=== PATIENT | male | born 1985 | race Caucasian/White ===

== ENCOUNTER 2020-03-28 17:19 | Emergency (ER) | payer MEDICAID ==
[~2020-03-28] VITALS: Ht 172.7 cm; Wt 185.0 kg
[2020-03-28] MEDS ORDERED: EMTR1TAB12 PO (17:46)
[2020-03-28] MEDS ORDERED: MAGNESIUM/ALUMINUM HYDROXIDE/SIMETHICONE 30ML UDC PO STA (17:59)
[2020-03-28] MEDS ORDERED: SODIUM CHLORIDE 0.9% 500 ML IV ONE (17:59)
[2020-03-28] MEDS ORDERED: KETOROLAC 30MG/ML VIAL IV STA (17:59)
[2020-03-28] MEDS ORDERED: ONDANSETRON HCL 4MG/2ML INJ IV STA (17:59)
[2020-03-28] MEDS ORDERED: VISCOUS LIDOCAINE 2% 15 ML UDC PO STA (17:59)
[2020-03-28 18:40] LABS: BASOPHILS % 0.2 % (0.0-2.0); EOSINOPHILS % 0.2 % (0.0-5.0); HEMATOCRIT. 46.5 % (42.0-52.0); HEMOGLOBIN. 16.1 g/dL (14.0-18.0); LYMPHOCYTES % 12.4 % (20.0-50.0); MEAN CORPUSCULAR HEMOGLOBIN 31.2 pg (28.0-32.0); MEAN PLATELET VOLUME 8.7 fl (7.4-10.4); MONOCYTES % 5.8 % (2.0-8.0); NEUTROPHILS % 81.4 % (40.0-76.0); PLATELET 277 x1000/uL (130-400); RED BLOOD CELL COUNT 5.17 mill/uL (4.7-6.1); RED CELL DISTRIBUTION WIDTH 13.8 % (11.6-14.6)
[2020-03-28 18:44] LABS: CHLORIDE 105 mEq/L (98-107)
[2020-03-28 18:48] LABS: PROTHROMBIN TIME 10.4 sec (9.6-11.0)
[2020-03-28] MEDS ORDERED: POTASSIUM CHLORIDE 20MEQ TABLET SR PO ONE (19:15)
[2020-03-28 19:16] LABS: CLARITY URINE CLEAR (CLEAR); COLOR URINE YELLOW (YELLOW); KETONES URINE NEGATIVE (NEGATIVE); LEUKOCYTE ESTERASE URINE NEGATIVE (NEGATIVE); NITRITE URINE NEGATIVE (NEGATIVE); OCCULT BLOOD URINE NEGATIVE (NEGATIVE); PH URINE 6.5 (4.5-8.0); PROTEIN URINE NEGATIVE (NEGATIVE); SPECIFIC GRAVITY URINE 1.004 (1.005-1.030); UROBILINOGEN URINE 0.2 E.U./dL (0.2-1.0)
[2020-03-28 20:30] VITALS: BP 135/72
== END 2020-03-28 20:45 | disposition home or self-care (01) ==
LOC: ER 17:19
DX: R10.13 Epigastric pain (principal); E66.01 Morbid (severe) obesity due to excess calories; Z68.44 Body mass index [BMI] 60.0-69.9, adult
CPT/HCPCS: 36415; 71045; 74177; 80053; 81003; 83690; 83880; 85025; 85610; 93005; 96361; 96374; 96375; 99285; J1885; J2405; J7030

== ENCOUNTER 2020-05-29 23:18 | Emergency (ER) | payer MEDICAID ==
[~2020-05-29] VITALS: Ht 172.7 cm; Wt 186.0 kg
[~2020-05-29 23:18] MED LIST: EMTR1TAB12 PO
[2020-05-30 00:11] LABS: BASOPHILS % 0.5 % (0.0-2.0); EOSINOPHILS % 2.1 % (0.0-5.0); HEMATOCRIT. 43.8 % (42.0-52.0); HEMOGLOBIN. 15.4 g/dL (14.0-18.0); LYMPHOCYTES % 37.9 % (20.0-50.0); MEAN CORPUSCULAR HEMOGLOBIN 31.5 pg (28.0-32.0); MEAN CORPUSCULAR VOLUME 89.6 fL (80.0-94.0); MEAN PLATELET VOLUME 8.6 fl (7.4-10.4); MONOCYTES % 9.5 % (2.0-8.0); PLATELET 249 x1000/uL (130-400); RED BLOOD CELL COUNT 4.89 mill/uL (4.7-6.1); RED CELL DISTRIBUTION WIDTH 13.2 % (11.6-14.6)
[2020-05-30 00:12] LABS: CHLORIDE 106 mEq/L (98-107)
[2020-05-30 01:42] VITALS: BP 139/78
== END 2020-05-30 03:23 | disposition home or self-care (01) ==
LOC: ER 23:18
DX: M94.0 Chondrocostal junction syndrome [Tietze] (principal)
CPT/HCPCS: 36415; 71045; 80048; 84484; 85025; 85379; 93005; 99285

== ENCOUNTER 2020-10-09 06:21 | Emergency (ER) | payer MEDICAID ==
[~2020-10-09] VITALS: Ht 172.7 cm; Wt 187.0 kg
[2020-10-09] MEDS ORDERED: SODIUM CHLORIDE 0.9% 1,000 ML IV ONE (07:00)
[2020-10-09 07:27] LABS: BASOPHILS % 0.5 % (0.0-2.0); EOSINOPHILS % 0.4 % (0.0-5.0); HEMATOCRIT. 44.9 % (42.0-52.0); HEMOGLOBIN. 15.5 g/dL (14.0-18.0); LYMPHOCYTES % 18.3 % (20.0-50.0); MEAN CORPUSCULAR HEMOGLOBIN 30.6 pg (28.0-32.0); MEAN PLATELET VOLUME 8.9 fl (7.4-10.4); MONOCYTES % 8.5 % (2.0-8.0); NEUTROPHILS % 72.3 % (40.0-76.0); PLATELET 270 x1000/uL (130-400); RED BLOOD CELL COUNT 5.04 mill/uL (4.7-6.1); RED CELL DISTRIBUTION WIDTH 13.2 % (11.6-14.6)
[2020-10-09 07:35] LABS: CHLORIDE 106 mEq/L (98-107)
[2020-10-09 07:41] LABS: ETHANOL BLOOD < 10 mg/dL
[2020-10-09 07:48] LABS: PROTHROMBIN TIME 10.4 sec (9.6-11.0)
[2020-10-09] MEDS ORDERED: SODIUM CHLORIDE 0.9% 1,000 ML IV SCH (09:15)
[2020-10-09 09:46] LABS: CLARITY URINE CLEAR (CLEAR); COLOR URINE YELLOW (YELLOW); KETONES URINE TRACE (NEGATIVE); LEUKOCYTE ESTERASE URINE NEGATIVE (NEGATIVE); NITRITE URINE NEGATIVE (NEGATIVE); OCCULT BLOOD URINE NEGATIVE (NEGATIVE); PROTEIN URINE NEGATIVE (NEGATIVE); SPECIFIC GRAVITY URINE 1.022 (1.005-1.030); UROBILINOGEN URINE 0.2 E.U./dL (0.2-1.0)
[2020-10-09 10:18] LABS: *AMPHETAMINES SCREEN URINE NEGATIVE (NEGATIVE); *BARBITURATES SCREEN URINE NEGATIVE (NEGATIVE); *COCAINE SCREEN URINE NEGATIVE (NEGATIVE)
[2020-10-09 10:19] LABS: *BENZODIAZEPINES SCREEN URINE NEGATIVE (NEGATIVE); CANNABINOID URINE SCREEN NEGATIVE (NEGATIVE); METHADONE URINE SCREEN NEGATIVE (NEGATIVE); OPIATES URINE SCREEN NEGATIVE (NEGATIVE); PHENCYCLIDINE URINE SCREEN NEGATIVE (NEGATIVE)
[2020-10-09 14:40] VITALS: BP 138/79
== END 2020-10-09 16:19 | disposition home or self-care (01) ==
LOC: ER 06:21 → EDBEDREQ 09:04 → CANRESERV 14:39 → ENRESERV 14:39 → CANBEDREQ 15:57 → ER 16:19
DX: R53.1 Weakness (principal); R94.31 Abnormal electrocardiogram [ECG] [EKG]; Z88.8 Allergy status to other drugs, medicaments and biological substances
CPT/HCPCS: 36415; 71045; 76705; 80053; 80305; 80320; 81003; 83605; 83690; 83880; 84145; 84484; 85025; 85379; 85610; 87040; 87086; 93005; 96360; 96361; 99285; J7030; Z7610; G0480